=== PATIENT | female | born 1955 | race Caucasian/White ===

== ENCOUNTER 2023-10-20 09:37 | Outpatient (CLI) | payer MEDICARE, OTHER | END 2023-10-20 09:38 | disposition home or self-care (01) | LOC: CSHCT 09:37 | PROVIDERS: ATTEND Psychiatry & Neurology Neurology | DX: Q27.30 Arteriovenous malformation, site unspecified (principal); Z98.890 Other specified postprocedural states | CPT/HCPCS: 70496; 82565 ==